=== PATIENT | female | born 1980 | race Two or more races ===

== ENCOUNTER 2018-08-21 11:22 | Emergency (ER) | payer SELFPAY ==
[~2018-08-21] VITALS: Ht 170.2 cm; Wt 90.0 kg
[2018-08-21 11:40] VITALS: BP 151/89
--- NOTE | 2018-08-21 11:52 | NUR ---
FIRST CONTACT WITH PT. PT STATES "I'M STAYING AT A HOTEL. THE CABINET FELL OFF THE WALL AND LANDED ON MY RIGHT GREAT TOE. IT HAPPENED LAST NIGHT. I'VE BEEN TAKING IBUPROFEN." LAST IBUPROFEN TAKEN AT 6AM TODAY. NO LAC/REDNESS/SWELLING NOTED ON RIGHT SIDED GREAT TOE AT THIS TIME. PT'S AOX4. RESPS EVEN AND UNLABORED. NO OTHER S/S.
--- NOTE | 2018-08-21 12:46 | NUR ---
PA ORDERED CAST SHOE.
--- NOTE | 2018-08-21 13:10 | NUR ---
PA APPLIED CAST SHOE. PT TOLERATED WELL.
--- NOTE | 2018-08-21 13:14 | NUR ---
PT GIVEN DC INSTRUCTIONS. PT'S AOX4. RESPS EVEN AND UNLABORED. PT AMB TO DC WITH STEADY GAIT. NO ACUTE DISTRESS AT DC.
== END 2018-08-21 13:15 | disposition home or self-care (01) ==
LOC: ED 12:59
DX: S90.111A Contusion of right great toe without damage to nail, initial encounter (principal); W20.8XXA Other cause of strike by thrown, projected or falling object, initial encounter; Y93.89 Activity, other specified; Y92.009 Unspecified place in unspecified non-institutional (private) residence as the place of occurrence of the external cause; Y99.8 Other external cause status
CPT/HCPCS: 99283